=== PATIENT | female | born 2005 | race Caucasian/White ===

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

== ENCOUNTER 2025-02-19 15:01 | Outpatient (AMB) | payer BC, MEDICAID, SELFPAY ==
--- NOTE | 2025-02-19 15:02 | A.OFFVIS_ITS ---
Vital Signs 02/19/25 15:04 Height 5 ft 3 in Weight 99 lb 3.328 oz BMI 17.6 BP 92/50 L Blood Pressure Location Lt brachial Position Sitting Pulse 77 Pulse Source Pulse Oximeter Pulse Oximetry (%) 98 Oxygen Delivery Method Room Air Intake Visit Reasons: asthma [employer] Consultant Required: No Accompanied by: Mother Allergies sulfamethoxazole (From BACTRIM) Allergy (Unknown, Verified 02/19/25 15:05) HIVES trimethoprim (From BACTRIM) Allergy (Unknown, Verified 02/19/25 15:05) HIVES HPI Comments Details: The patient is here for pulmonary evaluation. The patient is a 19 year woman with a history of scoliosis in addition to asthma, chronic rhinitis and eczema. The patient has been followed closely by pediatric Pulmonary for many years. She has been on multiple inhalers. She also had received Dupixent at 1 point but she had an adverse reaction after a month and she stopped it. She also has significant scoliosis it since being followed closely by [facility]. She is scheduled to undergo surgery for her scoliosis sometime in June. Will plan to have her undergo pulmonary function studies in addition to blood work. The patient will switch over to Wixela to Symbicort at this time. She should continue with the Singulair. She has significant chronic rhinitis. She will start the fluticasone nasal spray should started Neti bottle at nighttime as long as is with distilled water in the packets. She will follow-up before her surgery in May so we can review the results. She may be a good candidate for Xolair. Will review the results and talk about that together then. If any issues arise she can always call for an earlier assessment. [facility] Medical History (Updated 02/19/25 @ 20:42 by Lincoln Bonilla MD) Eczema Chronic allergic rhinitis Scoliosis Asthma Allergies Social History (Updated 02/19/25 @ 15:06 by Amelia Lynn CMA) Patient Tobacco Use Status: Never used Tobacco Review of Systems Const Denies fever(s) Eyes Reports no additional complaints ENT Reports nasal discharge, Reports nasal obstruction and Reports post nasal drip Card Denies chest pain Resp Reports cough and Reports wheezing GI Reports no additional complaints Musc Reports as per HPI and Reports back pain Skin/Breast Reports rash Neuro Reports no additional complaints Zeb/Lymph Reports no additional complaints Aller/Immun Reports wheezing Physical Exam Vital Signs: Last Vital Signs Pulse 77 02/19/25 15:04 BP 92/50 L 02/19/25 15:04 Pulse Ox 98 02/19/25 15:04 Oxygen Delivery Method Room Air 02/19/25 15:04 BMI result Body Mass Index 17.6 Const General: comfortable HEENT General nose exam: Abnormal mucous membranes and turbinates present boggy and erythematous and Nasal discharge present Neck Neck: Yes supple Chest Chest palpation & inspection: normal inspection of the chest Resp Effort & Inspection: normal respiratory effort Auscultation: wheezes and diminished lung sounds Cardio Heart sounds: S1 normal heart sound present and S2 normal heart sound present GI Palpation (GI): Soft to palpation Back/Spine/Pelvis Thoracic/Lumbar Spine: Thoracic/lumbar scoliosis Skin Rashes: rashes noted Extrem General: Yes no clubbing, cyanosis or edema Assessment & Plan Assessment & Plan (1) Allergies: Code(s): T78.40XA - Allergy, unspecified, initial encounter Category: Medical Qualifiers: Encounter type: initial encounter Qualified Code(s): T78.40XA - Allergy, unspecified, initial encounter (2) Asthma: Code(s): J45.909 - Unspecified asthma, uncomplicated Category: Medical Qualifiers: Asthma severity: moderate Asthma persistence: persistent Asthma complication type: uncomplicated Qualified Code(s): J45.40 - Moderate persistent asthma, uncomplicated (3) Scoliosis: Code(s): M41.9 - Scoliosis, unspecified Category: Medical Qualifiers: Scoliosis type: unspecified scoliosis Spinal region: unspecified Qualified Code(s): M41.9 - Scoliosis, unspecified (4) Chronic allergic rhinitis: Code(s): J30.9 - Allergic rhinitis, unspecified Category: Medical (5) Eczema: Code(s): L30.9 - Dermatitis, unspecified Category: Medical Qualifiers: Eczema type: flexural Qualified Code(s): L20.82 - Flexural eczema Plan stop Wixela start Symbicort continue Singulair GRANT as needed Has a nebulizer PFTs Need [place] [facility] [place] Fluticasone nasal spray Neti bottle with distilled water and packet PM Bloodwork and allergy testing F/U 3-4 months Orders: Orders Complete Blood Count Auto Diff Today T78.40XA - Allergy, unspecified, initial encounter Hypersensitive Pneumonitis Prf Today R91.8 - Other nonspecific abnormal finding of lung field, T78.40XA - Allergy, unspecified, initial encounter Resp Allergy Profile Region I Today R91.1 - Solitary pulmonary nodule, T78.40XA - Allergy, unspecified, initial encounter Immunoglobulin E Today T78.40XA - Allergy, unspecified, initial encounter Erythrocyte Sedimentation Rate Today T78.40XA - Allergy, unspecified, initial encounter PFT pulmonary function test Today J45.909 - Unspecified asthma, uncomplicated, M41.9 - Scoliosis, unspecified, T78.40XA - Allergy, unspecified, initial encounter Medications: New albuterol sulfate 90 mcg/actuation (Ventolin HFA) 1 inh inhalation Q6H PRN 8.5 grams 6RF shortness of breath or wheezing 30 days budesonide-formoterol 160-4.5 mcg/actuation 2 puffs inhalation BID 10.2 grams 11RF 30 days J44.9 - Chronic obstructive pulmonary disease, unspecified montelukast (Singulair) 10 mg PO DAILY 90 tabs 3RF 90 days fluticasone propionate 50 mcg/actuation 2 sprays intranasal DAILY 15.8 mL 11RF 30 days J31.0 - Chronic rhinitis Coding Level of Care Code New Pt Level 4 (03259) Diagnoses Allergy, initial encounter T78.40XA Encounter type: initial encounter Moderate persistent asthma without complication J45.40 Asthma severity: moderate Asthma persistence: persistent Asthma complication type: uncomplicated Scoliosis, unspecified scoliosis type, unspecified spinal region M41.9 Scoliosis type: unspecified scoliosis Spinal region: unspecified Chronic allergic rhinitis J30.9 Flexural eczema L20.82 Eczema type: flexural Time Spent (min) 45
[2025-02-19 15:04] VITALS: BP 92/50; PULSE 77; O2SAT 98; BMI 17.6
--- OUTSIDE RECORDS SUMMARY | 2025-02-19 16:43 | XMS_ITS | Clinical Summary ---
Author Organization [facility] Address [address] [place] [address] Care Team Providers Care Survey Cad Technician Name Role Phone Caitlin Mead MD Primary Care Provider [phone] Elva Royal RN Unavailable Unavailable Allergies Active Allergy Reactions Criticality Noted Date Comments Sulfamethoxazole-Trimethoprim 2021 Medications albuterol 2.5 mg /3 mL (0.083 %) nebulizer solution Inhale 2.5 mg every 4 (four) hours if needed. 3 Active cetirizine 10 mg tablet,disinteg rating mg, tab(s) 1 Active Wixela Inhub 500-50 mcg/dose diskus inhaler Inhale 1 puff in the morning and at bedtime. 3 Active fluticasone (Flonase) 50 mcg/actuation nasal spray Administer 1 spray into affected nostril(s) in the morning. 3 Active predniSONE (Deltasone) 10 mg tablet TAKE 4 TABS BY MOUTH ONCE DAILY X5 DAYS, 2 TABS DAILY X5 DAYS, THEN 1 TAB FOR 5 DAYS 3 Active fexofenadine HCl (TERRANCE ORAL) Take 1 tablet by mouth in the morning. 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 Overview (02/04/2023): Last Assessment & Plan: Still has an IEP in school Encounters Date Type Department Care Team Description 02/13/2025 Telephone [facility] [address] [address] Jory Penn, JOSE MANUEL 01/31/2025 Patient Outreach [address] [address] Elva Royal, LINDSEY 01/28/2025 Patient Outreach [address] [address] Elva Royal, LINDSEY 01/16/2025 Orders Only [address] [address] Elva Royal, LINDSEY Adolescent idiopathic scoliosis of thoracolumbar region 01/16/2025 Orders Only [address] [address] Elva Royal, LINDSEY Adolescent idiopathic scoliosis of thoracolumbar region (Primary Dx) 01/15/2025 10:30 AM EDT Consult [address] [address] John Carter MD Adolescent idiopathic scoliosis of thoracolumbar region (Primary Dx) 12/05/2024 12:30 PM EDT Evaluation [address] [address] Jory Penn, PT Abnormal posture (Primary Dx); Adolescent idiopathic scoliosis of thoracolumbar region; Chronic left-sided low back pain without sciatica 12/05/2024 Plan of Care Documentation [address] [id number] 11/27/2024 10:16 AM EDT - 11/27/2024 11:59 PM EDT Hospital Encounter [address] [address] Adolescent idiopathic scoliosis of thoracolumbar region; Chronic left-sided low back pain without sciatica Discharge Disposition: Discharged to Home or Self Care (Routine Discharge) 11/27/2024 10:00 AM EDT Consult [address] [address] Mike Ames PA-C Chronic left-sided low back pain without sciatica (Primary Dx); Adolescent idiopathic scoliosis of thoracolumbar region from Last 3 Months Social History Tobacco Use Types Packs/Day Years Used Date Smoking Tobacco: Unknown Tobacco Cessation:Counseling Given: Not Answered Comments No Sex and Gender Information Value Date Recorded Sex Assigned at Female 01/19/2022 12:15 AM EDT Legal Sex Female 12:15 AM EDT Gender Identity Not on file Sexual Orientation Not on file Last Filed Vital Signs Vital Sign Reading Time Taken Comments Blood Pressure - - Pulse - - Temperature - - Respiratory Rate - - Oxygen Saturation - - Inhaled Oxygen Concentration - - Weight 43.8 kg (96 lb 9 oz) 01/15/2025 10:44 AM EDT Height 160.5 cm (5' 3.19 ) 01/15/2025 10:44 AM E DT Body Mass Index 17 01/15/2025 10:44 AM EDT Plan of Treatment Upcoming Encounters Date Type Department Care Team (Late st Contact Info) Description 02/20/2025 10:00 AM EST Treatment [address] [address] Jory Penn, PT [address] [place] [id number] 02/27/2025 10:00 AM EST Treatment [address] [address] Jory Penn, PT [address] [place] [id number] 03/06/2025 10:00 AM EST Treatment [address] [address] Jory Penn, PT [address] [place] [id number] 03/13/2025 10:00 AM EST Treatment [address] [address] Jory Penn, PT [address] [place] [address] 03/20/2025 10:00 AM EST Treatment [facility] [address] [place] [address] Jory Penn, PT [address] [place] [address] Procedures Procedure Name Priority Date/Time Associated Diagnosis Comments XR ENTIRE SPINE 2 OR 3 VW Routine 11/27/2024 10:23 AM EDT Adolescent idiopathic scoliosis of thoracolumbar region Chronic left-sided low back pain without sciatica from Last 3 Months Results * XR entire spine 2 or 3 views (11/27/2024 10:23 AM EDT) Anatomical Region Laterality Modality Spine Digital Radiogra phy Mike Ames PA-C IMG XR PROCEDURES Final Result from Last 3 Months Insurance [place] [employer] [facility] OF [facility] BCBS OF [facility] [place] [employer] Care Teams Survey Cad Technician Relationship Specialty Start Date End Date Caitlin Mead MD [address] [place] [address] [place] [id number] PCP - General 11/24/21 Elva Royal, surtass analystWarehouse Specialist 01/16/25
== END 2025-02-19 15:29 | disposition home or self-care (01) ==
LOC: HO.HPS 15:01
PROVIDERS: PCP Specialist; Visit Provider Hospitalist
DX: T78.40XA Allergy, unspecified, initial encounter (principal); J45.40 Moderate persistent asthma, uncomplicated; M41.9 Scoliosis, unspecified; J30.9 Allergic rhinitis, unspecified; L20.82 Flexural eczema
CPT/HCPCS: 99204

== ENCOUNTER 2025-02-19 15:01 | Outpatient (REF) | payer BC, MEDICAID, SELFPAY ==
[2025-02-19 15:42] LABS: MANUAL DIFF FLAG NO
[2025-02-19 16:27] LABS: Hematocrit 34.6 % (37.0-47.0); Hemoglobin 12.1 g/dl (12.0-16.0); Imm Gran Abs Auto 0.02 X10*3/uL (0.00-0.03); Imm Gran Pct Auto 0.2 % (0.0-0.4); Lymphocytes Absolute Auto 2.9 X10*3/uL (1.2-4.9); Mean Corpuscular HGB Conc 35.0 g/dl (31.0-35.0); Mean Corpuscular Hemoglobin 30.8 pg (27.0-33.0); Mean Corpuscular Volume 88.0 fL (80.0-98.0); NRBC Abs Auto 0.000 X10*3/uL (0.0-0.012); NRBC Pct Auto 0.0 /100WBC (0.0-0.2); Platelet Count 321 X10*3/uL (160-400); Red Blood Count 3.93 X10*6/uL (4.20-5.50); White Blood Count 8.5 X10*3/uL (4.8-10.8)
[2025-02-20 18:37] LABS: Class Alternaria alternata 1; Class Aspergillus fumigatus 0/1; Class Bermuda Grass 1; Class Birch 4; Class Cat Dander 4; Class Cladosporium herbarum 0/1; Class Cockroach 0/1; Class Common Ragweed 2; Class Cottonwood 1; Class Derm. pterony 2; Class Dermatophagoides farinae 2; Class Dog Dander 5; Class Elm 2; Class Maple Box Elder 1; Class Mountain Cedar 1; Class Mouse Urine Protein 5; Class Mugwort 1; Class Oak 4; Class Penicillium crysogenum 0/1; Class Rough Pigweed 0/1; Class Sheep Sorrel 0/1; Class Sycamore 2; Class Timothy Grass 1; Class Walnut Tree 2; Class White Ash 2; Class White Mulberry 1; D002 - IgE D farinae 0.70 kU/L; E001 - IgE Cat Dander 41.60 kU/L; E005 - IgE Dog Dander 97.20 kU/L; G006 - IgE Timothy Grass 0.54 kU/L; I006-IgE Cockroach, German 0.31 kU/L; M002 - IgE Cladosporium herbar 0.12 kU/L; M003 - IgE Aspergillus fumigat 0.17 kU/L; M006 - IgE Alternaria alternat 0.38 kU/L; T001 IgE Maple/Box Elder 0.56 kU/L; T006 - IgE Cedar, Mountain 0.43 kU/L; T007 - IgE Oak, White 21.80 kU/L; T008 IgE Elm, American 0.82 kU/L; T010 - IgE Walnut 0.71 kU/L; T011 - IgE Maple Leaf Sycamore 0.88 kU/L; T014 - IgE Cottonwood 0.61 kU/L; T015 - IgE Ash, White 0.80 kU/L; T070 - IgE White Mulberry 0.46 kU/L; W001 - IgE Ragweed, Short 0.87 kU/L; W006 - IgE Mugwort 0.39 kU/L; W014 IgE Pigweed, Common 0.25 kU/L; W018 IgE Sheep Sorrel 0.28 kU/L
[2025-02-25 11:21] LABS: Asperg fumigatus Precip Abs NEGATIVE; Micropoly faeni Abs NEGATIVE; Saccharo pora viridis Abs NEGATIVE; Thermo candidus Abs NEGATIVE
== END 2025-02-19 15:02 | disposition home or self-care (01) ==
LOC: HO.LAB 15:01
PROVIDERS: PCP Specialist; Visit Provider Hospitalist
DX: J45.40 Moderate persistent asthma, uncomplicated (principal); J44.89 Other specified chronic obstructive pulmonary disease; T78.40XA Allergy, unspecified, initial encounter; M41.9 Scoliosis, unspecified; J31.0 Chronic rhinitis; L20.82 Flexural eczema; Z79.899 Other long term (current) drug therapy; Z01.84 Encounter for antibody response examination
CPT/HCPCS: 36415; 82785; 85025; 85652; 86003; 86331; 86606; 86609